=== PATIENT | female | born 1965 | race Caucasian/White ===

== ENCOUNTER 2016-09-25 20:19 | Emergency (ER) ==
[2016-09-25 20:29] VITALS: BP 128/69
[2016-09-25] MEDS ORDERED: STADOL IM ONE (20:55)
[2016-09-25] MEDS ORDERED: PHENERGAN IM ONE (20:56)
--- NOTE | 2016-09-25 20:56 | PROVIDER DOCUMENTATION ---
HPI-Headache - General Chief Complaint: Headache Stated Complaint: HEADACHE Time Seen by Provider: 09/25/16 20:23 Source: patient, family Allergies/Adverse Reactions: Patient Allergies Allergy/AdvReac Type Severity Reaction Status Date / Time dihydroergotamine Allergy Severe Unknown Verified 01/07/16 17:57 diphenhydramine HCl * Allergy Severe muscle Verified 01/07/16 17:57 [From Benadryl] spasms ketorolac tromethamine * Allergy Severe Unknown Verified 01/07/16 17:57 [From Toradol] sumatriptan [From Imitrex] Allergy Severe Unknown Verified 01/07/16 17:57 sumatriptan succinate * Allergy Severe Unknown Verified 01/07/16 17:57 [From Imitrex] acetaminophen Allergy ABDOMINAL Verified 01/07/16 17:57 [From Darvocet-N] PAIN dihydroergotamine mesylate * Allergy HEADACHE Verified 01/07/16 17:57 [From D.H.E.45] hydroxyzine HCl * Allergy Unknown Verified 01/07/16 17:57 [From Vistaril] hydroxyzine pamoate * Allergy Unknown Verified 01/07/16 17:57 [From Vistaril] pregabalin [From Lyrica] Allergy Unknown Verified 09/01/16 13:05 propoxyphene napsylate * Allergy ABDOMINAL Verified 01/07/16 17:57 [From Darvocet-N] PAIN rizatriptan benzoate * Allergy Unknown Verified 01/07/16 17:57 [From Maxalt] codeine AdvReac ITCHING Verified 01/07/16 17:57 diclofenac potassium * AdvReac ABDOMINAL Verified 01/07/16 17:57 [From Cambia] PAIN Home Medications: Alendronate Sodium 35 mg PO DIRECTED 11/01/14 Quetiapine [Seroquel] 300 mg PO QHS 11/01/14 Topiramate [Topamax] 300 mg PO BID 04/12/15 Estradiol 0.5 mg PO DAILY 05/20/15 Omeprazole [Prilosec] 40 mg PO HS 05/20/15 Fluoxetine [Prozac] 60 mg PO DAILY 01/07/16 - History of Present Illness-Headache Nature of Presenting Problem: 51 year old WF with a long, extensive history of migraine MARK's presents with one of her regular migraine MARK's. pt reports the pain is dull, constant, behind bilateral eyes, radiating to the posterior head. pt reports this is her normal presentations, denies new signs or symptoms, numbness, tingling,weakness, speech difficulties, visual changes. Headache Location: reports: frontal Quality of Pain: reports: aching Severity: reports: mild Onset/Duration: reports: 3 days ago Timing: reports: still present, constant, getting worse Headache Context: reports: nothing. denies: head injury, meningitis exposure Headache History: reports: frequent headaches, chronic headaches, history of migraines. denies: occasional headaches, head trauma < 24 hrs ago, head trauma > 24 hrs ago Any recent trauma/injury?: reports: none Headache severity at the maximum: moderate Preceding Symptoms: reports: visual disturbances. denies: scotoma, aura(s), typical of previous aura(s) Headache Exacerbated by:: reports: light, noise, movement, position Modifying Factors: improves with: analgesics (stadol/nubain) Associated Symptoms: denies: paresthesia, seizures, slurred speech, tingling in legs/feet, trouble walking, vomiting, vision changes, weakness Similar Symptoms Previously?: Yes Recently seen or treated by another doctor?: No Review of Systems - Adult - REVIEW OF SYSTEMS - ADULT Constitutional: reports: no symptoms reported. denies: chills, fever, fatique Eyes: reports: see HPI, other (photophobia). denies: discharge, dry eyes, decreased vision, blurred vision, double vision, eye pain, redness Ears, Nose, Mouth & Throat: reports: no symptoms reported. denies: ear discharge, ear pain, nose pain, loose teeth, throat pain, throat swelling Cardiovascular: reports: no symptoms reported. denies: chest pain, palpitations , syncope Respiratory: reports: no symptoms reported. denies: chronic cough, cough, shortness of breath, wheezing Gastrointestinal: reports: no symptoms reported. denies: abdominal pain, diarrhea, nausea, vomiting Genitourinary: reports: no symptoms reported. denies: dysuria, hematuria, urgency Musculoskeletal: reports: no symptoms reported. denies: bone pain, joint pain, joint swelling, neck pain Integumentary: reports: no symptoms reported. denies: hives, rash, skin sores/ ulcer Neurological: reports: see HPI, headache/migraines. denies: ataxia, dizziness/ vertigo, loss of balance, numbness, paresthesia, seizure, slurred speech, syncope, tremors Psychiatric: reports: no symptoms reported Endocrine: reports: no symptoms reported Hematologic/Lymphatic: reports: no symptoms reported Allergic/Immunologic: reports: no symptoms reported. denies: frequent infections All Other Systems: Reviewed and Negative Past History - Adult - PAST MEDICAL HISTORY-ADULT Review of Records: reports: Old Records Reviewed, Nursing Assessment Review, Medications Reviewed, Social history reviewed & non-contributory. Major Childhood Illnesses: reports: denies history Cardiovascular: reports: denies history Respiratory: reports: asthma Gastrointestinal: reports: denies history Obstetrical/Gynecological: reports: denies history Genitourinary: reports: incontinence Musculoskeletal: reports: fibromyalgia Neurological: reports: headaches/migraines Psychiatric: reports: bipolar Endocrine/Immune: reports: denies history Other Conditions: reports: denies history - PRIOR SURGERIES/PROCEDURES Surgical/Procedure History: reports: hysterectomy, tonsillectomy, other (carpal tunnel) - IMMUNIZATION STATUS Childhood Immunizations: See Nurse Assessment Flu Vaccine: See Nurse Assessment - FAMILY HISTORY Family History: reviewed, not pertinent - SOCIAL HISTORY Smoking: cigarettes, greater than 1 pack/day Provider spent 3-5 mins advising pt. on dangers of tobacco.: Discussed manners to quit use, and f/u contacts for add'l counseling. Substance Use: none/never Alcohol Use Frequency: never Physical Exam- Neurological - Physical Exam-Neuro Initial Vital Signs Reviewed: Yes General Appearance: appears well, alert, no apparent distress. negative: lethargic, slow to respond, obtunded, combative Eye Exam: bilateral eye: normal inspection, PERRL, EOMI HENMT: normocephalic/atraumatic, moist mucous membranes, normal ENT inspection Head Injury: no evidence of injury Neck: non-tender, full range of motion, supple, normal inspection. negative: C- spine tenderness, limited range of motion, tender lateral, tender midline Respiratory: chest non-tender, lungs clear, normal breath sounds, no pleuratic chest pain, no respiratory distress, no accessory muscle use Cardiovascular: normal peripheral pulses, regular rate, rhythm, no edema, no gallop, no JVD, no murmur Abdominal Exam: normal bowel sounds, non tender, soft, no organomegaly, no pulsatile mass Lymphatic: no adenopathy Peripheral Pulses: radial (R): 3+, radial (L): 3+ Extremity: normal range of motion, non-tender, normal gait, normal inspection, no pedal edema, no calf tenderness, normal capillary refill, 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 negative: abnormal eye position , abnormal gag reflex, abnormal pupil position, abnormal speech, facial asymmetry, facial droop, facial paresthesias, facial weakness, gaze palsy, tongue deviation to R, tongue deviation to L Coordination/Gait: normal finger to nose, normal gait, negative Romberg's sign. negative: abnormal gait Motor/Sensory: no motor deficit, no sensory deficit, no pronator drift, negative Babinski's sign. negative: pronator drift (R), pronator drift (L), weak motor strength RUE, weak motor strength LUE, weak motor strength RLE, weak motor strength LLE Neurologic: band head saw operator II-XII nml as tested, grossly normal, no motor/sensory deficits , negative romberg's sign. negative: abnormal cerebellar tests, abnormal band head saw operator II -XII, abnormal gait, aphasia, EOM palsy, facial droop, focal weakness, motor weakness, sensory deficit, positive romberg's sign Integumentary: normal color, normal turgor, warm/dry Psych/Mental Status: AL, normal mood/affect, normal thought content, normal thought process, oriented x 3 - Glascow Coma Scale Best Eye Response: (4) open spontaneously Best Verbal Response: (5) oriented Best Motor Response: (6) obeys commands Total Glascow Score: 15 Progress - PLAN OF CARE/RESULTS Progress/Plan/Lab Results: Orders Category Date Time Status Butorphanol [Stadol] Med 09/25/16 20:55 Discontinued 1 mg IM NOW ONE Promethazine [Phenergan] Med 09/25/16 20:56 Discontinued 25 mg IM NOW ONE Vital Signs - 24 hr 09/25/16 20:25 Temperature 98.5 F Pulse Rate 89 Respiratory 18 Rate Blood Pressure 128/69 O2 Sat by Pulse 100 Oximetry Departure - Departure Time of Disposition Order: 20:54 DIAGNOSIS: Headache Qualifiers: Headache type: unspecified Headache chronicity pattern: chronic headache Intractability: not intractable Qualified Code(s): R51 - Headache Migraines Qualifiers: Migraine type: other Status migrainosus presence: without status migrainosus Intractability: not intractable Qualified Code(s): G43.809 - Other migraine, not intractable, without status migrainosus Disposition: HOME 01 Certified Medical Emergency: Emergent Condition: Stable Additional Instructions: Follow up with neurology as scheduled on the 07 of October. ED Follow Up Instructions: You have been treated by a care provider in the Emergency Department. These instructions are being provided to you so you can have an understanding of how to care for yourself upon discharge. Upon discharge from the Emergency Department, you are responsible for making arrangements for follow-up care by a physician of your choice. Take all prescribed medications as directed. Return to the Emergency Department immediately for any new or worsening symptoms. You may call the Physician Referral phone number at [phone] to obtain a list of Physicians who are taking new patients. Prescriptions: Butalb/APAP/Caffeine [Fioricet] 1 each PO Q4H PRN PRN #7 capsule PRN Reason: Migraine Headache Referrals: Edgar Mcgill MD [STAFF PHYSICIAN] - Forms: Return to School/Parent Work Instructions: Acetaminophen; Butalbital; Caffeine tablets or capsules, Migraine Headache, [id number] Attestation - Physician/ Mid-level Attestation Patient care was provided by Mid-level provider (MACHINE SHOP HELPER/PA):: Yes Mid-level provider:: Micha Solis Mid-level documentation review:: The Mid-level provider documentation, treatment plan and medical decision making was reviewed by the physician who agrees with all treatment and medical decision making by the P.
== END 2016-09-25 22:06 | disposition home or self-care (01) ==
LOC: P.ED 20:19
DX: G43.809 Other migraine, not intractable, without status migrainosus (principal); R51 Headache; H53.149 Visual discomfort, unspecified; G89.29 Other chronic pain; M79.7 Fibromyalgia; F31.9 Bipolar disorder, unspecified; F17.210 Nicotine dependence, cigarettes, uncomplicated; Z79.899 Other long term (current) drug therapy; Z71.6 Tobacco abuse counseling
CPT/HCPCS: 96372; J0595; J2550

== ENCOUNTER 2016-11-27 17:05 | Emergency (ER) ==
[2016-11-27 17:18] VITALS: BP 122/78
== END 2016-11-27 18:56 | disposition left against medical advice (07) ==
LOC: P.ED 17:05
DX: R51 Headache (principal)

== ENCOUNTER 2016-11-29 14:58 | Emergency (ER) ==
[2016-11-29 15:05] VITALS: BP 135/89
[2016-11-29] MEDS ORDERED: PHENERGAN IM ONE (15:20)
[2016-11-29] MEDS ORDERED: NUBAIN IM ONE (15:20)
--- NOTE | 2016-11-29 15:26 | PROVIDER DOCUMENTATION ---
HPI-General Adult - General Chief Complaint: Headache Stated Complaint: HEADACHE Time Seen by Provider: 11/29/16 15:05 Source: patient Allergies/Adverse Reactions: Patient Allergies Allergy/AdvReac Type Severity Reaction Status Date / Time dihydroergotamine Allergy Severe Unknown Verified 11/27/16 17:19 diphenhydramine HCl * Allergy Severe muscle Verified 11/27/16 17:19 [From Benadryl] spasms ketorolac tromethamine * Allergy Severe Unknown Verified 11/27/16 17:19 [From Toradol] sumatriptan [From Imitrex] Allergy Severe Unknown Verified 11/27/16 17:19 sumatriptan succinate * Allergy Severe Unknown Verified 11/27/16 17:19 [From Imitrex] acetaminophen Allergy ABDOMINAL Verified 11/27/16 17:19 [From Darvocet-N] PAIN dihydroergotamine mesylate * Allergy HEADACHE Verified 11/27/16 17:19 [From D.H.E.45] hydroxyzine HCl * Allergy Unknown Verified 11/27/16 17:19 [From Vistaril] hydroxyzine pamoate * Allergy Unknown Verified 11/27/16 17:19 [From Vistaril] pregabalin [From Lyrica] Allergy Unknown Verified 11/27/16 17:19 propoxyphene napsylate * Allergy ABDOMINAL Verified 11/27/16 17:19 [From Darvocet-N] PAIN rizatriptan benzoate * Allergy Unknown Verified 11/27/16 17:19 [From Maxalt] codeine AdvReac ITCHING Verified 11/27/16 17:19 diclofenac potassium * AdvReac ABDOMINAL Verified 11/27/16 17:19 [From Cambia] PAIN Home Medications: Home Medication List Medication Instructions Recorded Confirmed Last Taken Type Alendronate Sodium 35 mg PO DIRECTED 11/01/14 09/25/16 08/02/15 History Quetiapine [Seroquel] 300 mg PO QHS 11/01/14 09/25/16 1 Day Ago History Promethazine [Phenergan] 1 tab PO Q6H PRN PRN #18 tablet 11/09/14 09/25/1608/02 Rx Topiramate [Topamax] 300 mg PO BID 04/12/15 09/25/16 08/02/15 History Estradiol 0.5 mg PO DAILY 05/20/15 09/25/16 08/02/15 History Omeprazole [Prilosec] 40 mg PO HS 05/20/15 09/25/16 08/02/15 History Fluoxetine [Prozac] 60 mg PO DAILY 01/07/16 09/25/16 Unknown History - History of Present Illness -Gen Adult Nature of Presenting Problems: Pt. is 51 yof that presents with c/o migraine MARK for two days. Pt. reports the lights hurt her eyes and states that she is nauseated. Pt. reports she came in yesterday but couldn't wait in the lobby with all of the kids screaming. Pt. denies any other symptoms but did state her Neurologist told her to come to the ED and get something to knock out her MARK when her home medications were not working. Location of Pain/Injury: reports: head. denies: face, mouth, neck, chest, upper extremity, hand(s), abdomen, back, pelvis, genitalia, lower extremity, feet, upper body, lower body, generalized Pain Radiation: reports: no radiation Quality of Pain: reports: aching. denies: burning, cramping, dull, fullness, indigestion, pressure, sharp, stabbing, tearing, throbbing, tightness Severity: reports: moderate. denies: mild, severe Onset/Duration: reports: gradual, 2 days ago Timing: reports: still present. denies: improving, gone now, resolved prior to arrival, intermittent, constant, changing over time, getting worse Context/Activities at Onset: reports: none. denies: recent emotional stress, recent physical stress, recent trauma history, possible bad food, cold exposure , out of country travel Modifying Factors: improves with: nothing Associated Symptoms: reports: headaches, nausea. denies: anxiety, arm pain, back/neck pain, chest pain, constipation, cough, diaphoresis, diarrhea, dizziness, EENT symptoms, fatigue, fever/chills, genitourinary problems, heartburn, joint pain, loss of appetite, malaise, muscle aches, sinus congestion /drainage, rash, seizure, shortness of breath, sensory/motor loss, pain with inspiration, swelling/mass in abdomen, syncope, vomiting, weakness, trouble walking Similar Symptoms Previously?: Yes Recently seen or treated by another doctor?: No Review of Systems - Adult - REVIEW OF SYSTEMS - ADULT Constitutional: reports: see HPI. denies: chills, fever, fatique Eyes: reports: see HPI. denies: discharge, blurred vision, double vision Ears, Nose, Mouth & Throat: reports: see HPI. denies: ear discharge, ear pain, hearing loss, sinus problem, nose pain, loose teeth, mouth/dental pain, throat pain, throat swelling Cardiovascular: reports: see HPI. denies: chest pain, irregular heart rate, orthopnea, syncope Respiratory: reports: see HPI. denies: chronic cough, cough, dyspnea on exertion, pleurisy, shortness of breath, wheezing Gastrointestinal: reports: see HPI, nausea. denies: abdominal pain, hematemesis , diarrhea, vomiting Genitourinary: reports: see HPI. denies: dysuria, discharge, flank pain, hematuria, hesitency, urgency Musculoskeletal: reports: see HPI. denies: bone pain, back pain, joint pain, muscle aches, neck pain Integumentary: reports: see HPI. denies: hives, itching, rash, skin thickening Neurological: reports: see HPI, headache/migraines. denies: ataxia, numbness, paresthesia, seizure, tremors Psychiatric: reports: see HPI. denies: anxiety, depression, emotional problems , insomnia, panic attacks, suicidal thoughts Past History - Adult - PAST MEDICAL HISTORY-ADULT Review of Records: reports: Old Records Reviewed, Nursing Assessment Review, Medications Reviewed, Social history reviewed & non-contributory. Major Childhood Illnesses: reports: denies history Cardiovascular: reports: denies history Respiratory: reports: asthma Gastrointestinal: reports: denies history Obstetrical/Gynecological: reports: denies history Genitourinary: reports: incontinence Musculoskeletal: reports: fibromyalgia Neurological: reports: headaches/migraines Psychiatric: reports: bipolar Endocrine/Immune: reports: denies history Other Conditions: reports: denies history - PRIOR SURGERIES/PROCEDURES Surgical/Procedure History: reports: hysterectomy, tonsillectomy, other (carpal tunnel) - IMMUNIZATION STATUS Childhood Immunizations: See Nurse Assessment Flu Vaccine: See Nurse Assessment - FAMILY HISTORY Family History: reviewed, not pertinent - SOCIAL HISTORY Smoking: cigarettes, greater than 1 pack/day Provider spent 3-5 mins advising pt. on dangers of tobacco.: Discussed the need to stop smoking. Physical Exam-General - PHYSICAL EXAM-ADULT Initial Vital Signs Reviewed: Yes - CONSTITUTIONAL General Appearance: alert, mild distress, thin. negative: obese, anxious, lethargic, slow to respond, obtunded, combative - EYES Eyes: PERRL/EOMI, pink conjunctivae, photophobia. negative: conjuctival exudate , scleral icterus, subconjunctival hemorrhage - HEAD, EARS, NOSE, MOUTH & THROAT HENMT: normocephalic/atraumatic, moist mucous membranes. negative: angioedema, frontal tenderness, maxillary tenderness - NECK Neck: non-tender, full range of motion, supple, normal inspection. negative: lymphadenopathy, trachial deviation, thyromegaly - RESPIRATORY Respiratory: lungs clear, normal breath sounds. negative: crackles, rales, rhonchi, stridor, wheezing - CARDIOVASCULAR Cardiovascular: normal peripheral pulses, regular rate, rhythm, no edema, no JVD , no murmur. negative: extra beats, friction rub, irregularly irregular - CHEST (BREASTS) Chest/Breast: deferred - GASTROINTESTINAL (ABDOMEN) Abdominal Exam: normal bowel sounds, non tender, soft. negative: distended, guarding, rigid, rebound, tenderness, hernia, mass - GENITOURINARY Female Genitalia/Pelvic Exam: deferred Rectal Exam: deferred Hemoccult Exam: deferred - LYMPHATIC Lymphatic: no adenopathy. negative: axilla node tender, cervical node tenderness - MUSCULOSKELETAL Back Exam: normal inspection, no CVA tenderness, no vertebral tenderness. negative: ecchymosis, swelling, vertebral tenderness Extremity: normal range of motion, non-tender, normal gait, normal inspection. negative: deformity, erythema, inflammation, swelling, tenderness Peripheral Pulses: radial (R): 2+, radial (L): 2+ - SKIN Integumentary: normal color, normal turgor, warm/dry. negative: cyanosis, diaphoresis, ecchymosis, erythema, jaundice, mottled, pallor, petechiae, purpura , rash, swelling, tenderness - NEUROLOGIC Neurologic: grossly normal, no motor/sensory deficits. negative: aphasia, facial droop, focal weakness, motor weakness, sensory deficit - PSYCHIATRIC Psych/Mental Status: normal mood/affect, normal thought content, normal thought process, oriented x 3. negative: anxious, tearful Progress - PLAN OF CARE/RESULTS Progress/Plan/Lab Results: Discussed plan of care with patient. Patient agrees with plan and verbalizes understanding. Vital Signs Temp Pulse Resp BP Pulse Ox 11/29/16 15:02 98 F 87 18 135/89 97 dihydroergotamine Allergy (Severe, Verified 11/27/16 17:19) Unknown diphenhydramine HCl * [From Benadryl] Allergy (Severe, Verified 11/27/16 17:19) muscle spasms ketorolac tromethamine * [From Toradol] Allergy (Severe, Verified 11/27/16 17:19 ) Unknown sumatriptan [From Imitrex] Allergy (Severe, Verified 11/27/16 17:19) Unknown sumatriptan succinate * [From Imitrex] Allergy (Severe, Verified 11/27/16 17:19) Unknown acetaminophen [From Darvocet-N] Allergy (Verified 11/27/16 17:19) ABDOMINAL PAIN dihydroergotamine mesylate * [From D.H.E.45] Allergy (Verified 11/27/16 17:19) HEADACHE hydroxyzine HCl * [From Vistaril] Allergy (Verified 11/27/16 17:19) Unknown hydroxyzine pamoate * [From Vistaril] Allergy (Verified 11/27/16 17:19) Unknown pregabalin [From Lyrica] Allergy (Verified 11/27/16 17:19) Unknown propoxyphene napsylate * [From Darvocet-N] Allergy (Verified 11/27/16 17:19) ABDOMINAL PAIN rizatriptan benzoate * [From Maxalt] Allergy (Verified 11/27/16 17:19) Unknown codeine Adverse Reaction (Verified 11/27/16 17:19) ITCHING diclofenac potassium * [From Cambia] Adverse Reaction (Verified 11/27/16 17:19) ABDOMINAL PAIN Alendronate Sodium 35 mg PO DIRECTED 11/01/14 Quetiapine [Seroquel] 300 mg PO QHS 11/01/14 Promethazine [Phenergan] 1 tab PO Q6H PRN PRN #18 tablet 11/09/14 Topiramate [Topamax] 300 mg PO BID 04/12/15 Estradiol 0.5 mg PO DAILY 05/20/15 Omeprazole [Prilosec] 40 mg PO HS 05/20/15 Fluoxetine [Prozac] 60 mg PO DAILY 01/07/16 Orders Category Date Time Status Nalbuphine [Nubain] Med 11/29/16 15:20 Discontinued 10 mg IM NOW ONE Promethazine [Phenergan] Med 11/29/16 15:20 Discontinued 25 mg IM NOW ONE Departure - Departure Time of Disposition Order: 15:25 DIAGNOSIS: Migraines Qualifiers: Migraine type: unspecified Status migrainosus presence: without status migrainosus Intractability: not intractable Qualified Code(s): G43.909 - Migraine, unspecified, not intractable, without status migrainosus Disposition: HOME 01 Certified Medical Emergency: Emergent Condition: Stable Additional Instructions: Follow up with primary care physician Follow up with Neurologist Rest in a cool dark room Return to ED for any concerns or worsening of symptoms ED Follow Up Instructions: You have been treated by a care provider in the Emergency Department. These instructions are being provided to you so you can have an understanding of how to care for yourself upon discharge. Upon discharge from the Emergency Department, you are responsible for making arrangements for follow-up care by a physician of your choice. Take all prescribed medications as directed. Return to the Emergency Department immediately for any new or worsening symptoms. You may call the Physician Referral phone number at [phone] to obtain a list of Physicians who are taking new patients. Attestation - Physician/ MELVA Attestation Patient care was provided by Advanced Practice Provider:: Yes Advanced Practice Provider:: Zhou Burger Advanced Practice Provider documentation review:: The Mid-level provider documentation, treatment plan and medical decision making was reviewed by the physician who agrees with all treatment and medical decision making by the MLP.
== END 2016-11-29 15:36 | disposition home or self-care (01) ==
LOC: P.ED 14:58
DX: G43.909 Migraine, unspecified, not intractable, without status migrainosus (principal); R51 Headache; R11.0 Nausea; H53.149 Visual discomfort, unspecified; M79.7 Fibromyalgia; F31.9 Bipolar disorder, unspecified; F17.210 Nicotine dependence, cigarettes, uncomplicated; Z79.899 Other long term (current) drug therapy; Z71.6 Tobacco abuse counseling
CPT/HCPCS: 96372; J2300; J2550

== ENCOUNTER 2016-12-05 23:23 | Emergency (ER) ==
[2016-12-05 23:41] VITALS: BP 103/69
--- NOTE | 2016-12-06 00:49 | PROVIDER DOCUMENTATION ---
HPI-Headache - General Source: patient - History of Present Illness-Headache Quality of Pain: reports: aching Severity: reports: mild Onset/Duration: reports: this morning Timing: reports: still present Headache History: reports: frequent headaches, history of migraines Any recent trauma/injury?: reports: none Headache severity at the maximum: mild Headache Exacerbated by:: reports: light Modifying Factors: improves with: nothing Associated Symptoms: reports: headache, nausea Similar Symptoms Previously?: Yes Recently seen or treated by another doctor?: Yes <Rosy Anderson - Last Filed: 12/06/16 00:50> <Ashkan Stallworth - Last Filed: 12/06/16 00:56> - General Chief Complaint: Headache Stated Complaint: HEADACHE Time Seen by Provider: 12/06/16 00:18 Allergies/Adverse Reactions: Patient Allergies Allergy/AdvReac Type Severity Reaction Status Date / Time dihydroergotamine Allergy Severe Unknown Verified 12/05/16 23:42 diphenhydramine HCl * Allergy Severe muscle Verified 12/05/16 23:42 [From Benadryl] spasms ketorolac tromethamine * Allergy Severe Unknown Verified 12/05/16 23:42 [From Toradol] sumatriptan [From Imitrex] Allergy Severe Unknown Verified 12/05/16 23:42 sumatriptan succinate * Allergy Severe Unknown Verified 12/05/16 23:42 [From Imitrex] acetaminophen Allergy ABDOMINAL Verified 12/05/16 23:42 [From Darvocet-N] PAIN dihydroergotamine mesylate * Allergy HEADACHE Verified 12/05/16 23:42 [From D.H.E.45] hydroxyzine HCl * Allergy Unknown Verified 12/05/16 23:42 [From Vistaril] hydroxyzine pamoate * Allergy Unknown Verified 12/05/16 23:42 [From Vistaril] pregabalin [From Lyrica] Allergy Unknown Verified 12/05/16 23:42 propoxyphene napsylate * Allergy ABDOMINAL Verified 12/05/16 23:42 [From Darvocet-N] PAIN rizatriptan benzoate * Allergy Unknown Verified 12/05/16 23:42 [From Maxalt] codeine AdvReac ITCHING Verified 12/05/16 23:42 diclofenac potassium * AdvReac ABDOMINAL Verified 12/05/16 23:42 [From [facility]] PAIN Home Medications: Home Medication List Medication Instructions Recorded Confirmed Last Taken Type Alendronate Sodium 35 mg PO DIRECTED 11/01/14 12/05/16 08/02/15 History Quetiapine [Seroquel] 300 mg PO QHS 11/01/14 12/05/16 1 Day Ago History Promethazine [Phenergan] 1 tab PO Q6H PRN PRN #18 tablet 11/09/14 12/05/1608/02 Rx Topiramate [Topamax] 300 mg PO BID 04/12/15 12/05/16 08/02/15 History Estradiol 0.5 mg PO DAILY 05/20/15 12/05/16 08/02/15 History Omeprazole [Prilosec] 40 mg PO HS 05/20/15 12/05/16 08/02/15 History Fluoxetine [Prozac] 60 mg PO DAILY 01/07/16 12/05/16 Unknown History Oxcarbazepine [Trileptal] 300 mg PO BID 12/05/16 12/05/16 Unknown History Review of Systems - Adult - REVIEW OF SYSTEMS - ADULT Constitutional: denies: chills, fever Eyes: reports: no symptoms reported Ears, Nose, Mouth & Throat: reports: no symptoms reported Cardiovascular: reports: no symptoms reported Respiratory: reports: no symptoms reported Gastrointestinal: reports: nausea. denies: diarrhea, vomiting Genitourinary: reports: no symptoms reported Musculoskeletal: reports: no symptoms reported Integumentary: reports: no symptoms reported Neurological: reports: headache/migraines. denies: dizziness/vertigo Psychiatric: reports: no symptoms reported Endocrine: reports: no symptoms reported Hematologic/Lymphatic: reports: no symptoms reported Allergic/Immunologic: reports: no symptoms reported All Other Systems: Reviewed and Negative <Rosy Anderson - Last Filed: 12/06/16 00:50> Past History - Adult - PAST MEDICAL HISTORY-ADULT Review of Records: reports: Nursing Assessment Review, Medications Reviewed Major Childhood Illnesses: reports: denies history Cardiovascular: reports: denies history Respiratory: reports: asthma Gastrointestinal: reports: denies history Obstetrical/Gynecological: reports: denies history Genitourinary: reports: incontinence Musculoskeletal: reports: fibromyalgia Neurological: reports: headaches/migraines Psychiatric: reports: bipolar Endocrine/Immune: reports: denies history Other Conditions: reports: denies history - PRIOR SURGERIES/PROCEDURES Surgical/Procedure History: reports: hysterectomy, tonsillectomy, other (carpal tunnel) - IMMUNIZATION STATUS Childhood Immunizations: See Nurse Assessment Flu Vaccine: See Nurse Assessment - FAMILY HISTORY Family History: reviewed, not pertinent - SOCIAL HISTORY Smoking: cigarettes, less than 1 pack/day Provider spent 3-5 mins advising pt. on dangers of tobacco.: Discussed manners to quit use, and f/u contacts for add'l counseling. Substance Use: none/never Alcohol Use Frequency: never <Rosy Anderson - Last Filed: 12/06/16 00:50> Physical Exam- Neurological - Physical Exam-Neuro Initial Vital Signs Reviewed: Yes General Appearance: appears well, alert, no apparent distress Eye Exam: bilateral eye: normal inspection, PERRL, EOMI Head Injury: no evidence of injury Respiratory: chest non-tender, lungs clear, normal breath sounds Cardiovascular: normal peripheral pulses, regular rate, rhythm, no edema front office help Exam: normal hearing, normal speech, PERRL Neurologic: front office help II-XII nml as tested, no motor/sensory deficits Integumentary: normal color, normal turgor, warm/dry Psych/Mental Status: normal mood/affect, normal thought content, normal thought process, oriented x 3 <Rosy Anderson - Last Filed: 12/06/16 00:50> Departure <Rosy Anderson - Last Filed: 12/06/16 00:50> - Departure Time of Disposition Order: 00:54 Certified Medical Emergency: Emergent <Ashkan Stallworth - Last Filed: 12/06/16 00:56> - Departure DIAGNOSIS: Migraines Qualifiers: Migraine type: unspecified Status migrainosus presence: without status migrainosus Intractability: not intractable Qualified Code(s): G43.909 - Migraine, unspecified, not intractable, without status migrainosus Disposition: HOME 01 Condition: Stable Additional Instructions: FOLLOW UP WITH YOUR NEUROLOGIST. ED Follow Up Instructions: You have been treated by a care provider in the Emergency Department. These instructions are being provided to you so you can have an understanding of how to care for yourself upon discharge. Upon discharge from the Emergency Department, you are responsible for making arrangements for follow-up care by a physician of your choice. Take all prescribed medications as directed. Return to the Emergency Department immediately for any new or worsening symptoms. You may call the Physician Referral phone number at [phone] to obtain a list of Physicians who are taking new patients. Attestation - Scribe Verification/Attestation Scribe:: Rosy Anderson Acting as Scribe for:: Ashkan Stallworth Scribe documention review:: This chart was documented by a scribe and accurately reflects the service the provider performed and the decisions made by the provider. <Rosy Anderson - Last Filed: 12/06/16 00:50> - Physician/ MELVA Attestation Patient care was provided by Advanced Practice Provider:: Yes Advanced Practice Provider:: Ashkan Stallworth Advanced Practice Provider documentation review:: The Mid-level provider documentation, treatment plan and medical decision making was reviewed by the physician who agrees with all treatment and medical decision making by the MLP. <Ashkan Stallworth - Last Filed: 12/06/16 00:56> Physician Attestation
[2016-12-06] MEDS ORDERED: PHENERGAN IM ONE (00:55)
[2016-12-06] MEDS ORDERED: DILAUDID IM ONE (00:55)
== END 2016-12-06 01:08 | disposition home or self-care (01) ==
LOC: P.ED 23:23
DX: G43.909 Migraine, unspecified, not intractable, without status migrainosus (principal); R51 Headache; R11.0 Nausea; M79.7 Fibromyalgia; F31.9 Bipolar disorder, unspecified; Z79.899 Other long term (current) drug therapy
CPT/HCPCS: 96372; J1170; J2550

== ENCOUNTER 2016-12-08 16:57 | Emergency (ER) ==
[2016-12-08 17:03] VITALS: BP 145/83
--- NOTE | 2016-12-08 17:41 | PROVIDER DOCUMENTATION ---
HPI-Headache - General Source: patient - History of Present Illness-Headache Headache Location: reports: global Quality of Pain: reports: aching Severity: reports: moderate Onset/Duration: reports: this morning Timing: reports: still present Headache Context: reports: nothing Headache History: reports: history of migraines Any recent trauma/injury?: reports: none Headache severity at the maximum: moderate Similar Symptoms Previously?: Yes Recently seen or treated by another doctor?: No <Manny Callahan - Last Filed: 12/08/16 17:38> <Danita Mortensen - Last Filed: 12/08/16 17:48> - General Chief Complaint: Headache Stated Complaint: HEADACHE Time Seen by Provider: 12/08/16 17:19 Allergies/Adverse Reactions: Patient Allergies Allergy/AdvReac Type Severity Reaction Status Date / Time dihydroergotamine Allergy Severe Unknown Verified 12/05/16 23:42 diphenhydramine HCl * Allergy Severe muscle Verified 12/05/16 23:42 [From Benadryl] spasms ketorolac tromethamine * Allergy Severe Unknown Verified 12/05/16 23:42 [From Toradol] sumatriptan [From Imitrex] Allergy Severe Unknown Verified 12/05/16 23:42 sumatriptan succinate * Allergy Severe Unknown Verified 12/05/16 23:42 [From Imitrex] acetaminophen Allergy ABDOMINAL Verified 12/05/16 23:42 [From Darvocet-N] PAIN dihydroergotamine mesylate * Allergy HEADACHE Verified 12/05/16 23:42 [From D.H.E.45] hydroxyzine HCl * Allergy Unknown Verified 12/05/16 23:42 [From Vistaril] hydroxyzine pamoate * Allergy Unknown Verified 12/05/16 23:42 [From Vistaril] pregabalin [From Lyrica] Allergy Unknown Verified 12/05/16 23:42 propoxyphene napsylate * Allergy ABDOMINAL Verified 12/05/16 23:42 [From Darvocet-N] PAIN rizatriptan benzoate * Allergy Unknown Verified 12/05/16 23:42 [From Maxalt] codeine AdvReac ITCHING Verified 12/05/16 23:42 diclofenac potassium * AdvReac ABDOMINAL Verified 12/05/16 23:42 [From [facility]] PAIN Home Medications: Home Medication List Medication Instructions Recorded Confirmed Last Taken Type Alendronate Sodium 35 mg PO DIRECTED 11/01/14 12/05/16 08/02/15 History Quetiapine [Seroquel] 300 mg PO QHS 11/01/14 12/05/16 1 Day Ago History Promethazine [Phenergan] 1 tab PO Q6H PRN PRN #18 tablet 11/09/14 12/05/1608/02 Rx Topiramate [Topamax] 300 mg PO BID 04/12/15 12/05/16 08/02/15 History Estradiol 0.5 mg PO DAILY 05/20/15 12/05/16 08/02/15 History Omeprazole [Prilosec] 40 mg PO HS 05/20/15 12/05/16 08/02/15 History Fluoxetine [Prozac] 60 mg PO DAILY 01/07/16 12/05/16 Unknown History Oxcarbazepine [Trileptal] 300 mg PO BID 12/05/16 12/05/16 Unknown History - History of Present Illness-Headache Nature of Presenting Problem: Pt has hx of migraines reports otc medications not working reports globalized like normal headache started this am with nausea and vomiting. Nothing makes it better or worse. (Manny Callahan) Review of Systems - Adult - REVIEW OF SYSTEMS - ADULT Constitutional: denies: chills, fever, fatique Eyes: reports: no symptoms reported Ears, Nose, Mouth & Throat: reports: no symptoms reported Cardiovascular: denies: chest pain, irregular heart rate, orthopnea, syncope Respiratory: reports: no symptoms reported Gastrointestinal: reports: nausea, vomiting. denies: abdominal pain, diarrhea Genitourinary: reports: no symptoms reported Musculoskeletal: reports: no symptoms reported Integumentary: reports: no symptoms reported Neurological: reports: headache/migraines. denies: loss of balance, numbness, paresthesia Psychiatric: reports: no symptoms reported Endocrine: reports: no symptoms reported Hematologic/Lymphatic: reports: no symptoms reported Allergic/Immunologic: reports: no symptoms reported All Other Systems: Reviewed and Negative <Manny Callahan - Last Filed: 12/08/16 17:38> Past History - Adult - PAST MEDICAL HISTORY-ADULT Review of Records: reports: Nursing Assessment Review Major Childhood Illnesses: reports: denies history Cardiovascular: reports: denies history Respiratory: reports: asthma Gastrointestinal: reports: denies history Obstetrical/Gynecological: reports: denies history Genitourinary: reports: incontinence Musculoskeletal: reports: fibromyalgia Neurological: reports: headaches/migraines Psychiatric: reports: bipolar Endocrine/Immune: reports: denies history Other Conditions: reports: denies history - PRIOR SURGERIES/PROCEDURES Surgical/Procedure History: reports: hysterectomy, tonsillectomy, other (carpal tunnel) - IMMUNIZATION STATUS Childhood Immunizations: See Nurse Assessment Flu Vaccine: See Nurse Assessment - FAMILY HISTORY Family History: reviewed, not pertinent - SOCIAL HISTORY Smoking: cigarettes, less than 1 pack/day Provider spent 3-5 mins advising pt. on dangers of tobacco.: Discussed manners to quit use, and f/u contacts for add'l counseling. 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 capillary refill orthopedic brace maker Exam: normal hearing, normal speech, PERRL Coordination/Gait: normal finger to nose, normal gait Motor/Sensory: no motor deficit, no sensory deficit Neurologic: grossly normal, no motor/sensory deficits Integumentary: normal color, normal turgor, warm/dry Psych/Mental Status: normal mood/affect, oriented x 3 - Glascow Coma Scale Best Eye Response: (4) open spontaneously Best Verbal Response: (5) oriented Best Motor Response: (6) obeys commands Total Glascow Score: 15 <Danita Mortensen - Last Filed: 12/08/16 17:48> Progress <Manny Callahan - Last Filed: 12/08/16 17:38> <Danita Mortensen - Last Filed: 12/08/16 17:48> - PLAN OF CARE/RESULTS Progress/Plan/Lab Results: Vital Signs - 24 hr 12/08/16 17:01 Temperature 98.4 F Pulse Rate 90 Respiratory 20 Rate Blood Pressure 145/83 O2 Sat by Pulse 100 Oximetry (Manny Callahan) Discussed care, diagnosis and need for follow-up, patient verbalized understanding Orders Category Date Time Status Promethazine [Phenergan] Med 12/08/16 17:46 Discontinued 25 mg IM NOW ONE Last Vital Signs Temp 98.4 F 12/08/16 17:01 Pulse 90 12/08/16 17:01 Resp 20 12/08/16 17:01 BP 145/83 12/08/16 17:01 Pulse Ox 100 12/08/16 17:01 Allergies dihydroergotamine Allergy (Severe, Verified 12/05/16 23:42) Unknown diphenhydramine HCl * [From Benadryl] Allergy (Severe, Verified 12/05/16 23:42) muscle spasms ketorolac tromethamine * [From Toradol] Allergy (Severe, Verified 12/05/16 23:42 ) Unknown sumatriptan [From Imitrex] Allergy (Severe, Verified 12/05/16 23:42) Unknown sumatriptan succinate * [From Imitrex] Allergy (Severe, Verified 12/05/16 23:42) Unknown acetaminophen [From Darvocet-N] Allergy (Verified 12/05/16 23:42) ABDOMINAL PAIN dihydroergotamine mesylate * [From D.H.E.45] Allergy (Verified 12/05/16 23:42) HEADACHE hydroxyzine HCl * [From Vistaril] Allergy (Verified 12/05/16 23:42) Unknown hydroxyzine pamoate * [From Vistaril] Allergy (Verified 12/05/16 23:42) Unknown pregabalin [From Lyrica] Allergy (Verified 12/05/16 23:42) Unknown propoxyphene napsylate * [From Darvocet-N] Allergy (Verified 12/05/16 23:42) ABDOMINAL PAIN rizatriptan benzoate * [From Maxalt] Allergy (Verified 12/05/16 23:42) Unknown codeine Adverse Reaction (Verified 12/05/16 23:42) ITCHING diclofenac potassium * [From Cambia] Adverse Reaction (Verified 12/05/16 23:42) ABDOMINAL PAIN Vital Signs - 24 hr 12/08/16 17:01 Temperature 98.4 F Pulse Rate 90 Respiratory 20 Rate Blood Pressure 145/83 O2 Sat by Pulse 100 Oximetry Discussed care, diagnsois and (Danita Mortensen) Departure <Manny Callahan - Last Filed: 12/08/16 17:38> - Departure Time of Disposition Order: 17:44 Certified Medical Emergency: Emergent <Danita Mortensen - Last Filed: 12/08/16 17:48> - Departure DIAGNOSIS: Migraine Qualifiers: Migraine type: unspecified Status migrainosus presence: without status migrainosus Intractability: not intractable Qualified Code(s): G43.909 - Migraine, unspecified, not intractable, without status migrainosus Disposition: HOME 01 Condition: Stable Additional Instructions: ED Follow Up Instructions: You have been treated by a care provider in the Emergency Department. These instructions are being provided to you so you can have an understanding of how to care for yourself upon discharge. Upon discharge from the Emergency Department, you are responsible for making arrangements for follow-up care by a physician of your choice. Take all prescribed medications as directed. Return to the Emergency Department immediately for any new or worsening symptoms. You may call the Physician Referral phone number at [phone] to obtain a list of Physicians who are taking new patients. Referrals: Malika Trotter MD [STAFF PHYSICIAN] - None,PCP [Primary Care Provider] - Forms: Return to School/Parent Work Attestation - Scribe Verification/Attestation Scribe:: Manny Callahan Acting as Scribe for:: Danita Mortensen Scribe documention review:: This chart was documented by a scribe and accurately reflects the service the provider performed and the decisions made by the provider. - Physician/ MELVA Attestation Patient care was provided by Advanced Practice Provider:: Yes Advanced Practice Provider:: Danita Mortensen Advanced Practice Provider documentation review:: The Mid-level provider documentation, treatment plan and medical decision making was reviewed by the physician who agrees with all treatment and medical decision making by the MLP. <Manny Callahan - Last Filed: 12/08/16 17:38> - Physician/ MELVA Attestation Patient care was provided by Advanced Practice Provider:: Yes Advanced Practice Provider:: Danita Mortensen Advanced Practice Provider documentation review:: The Mid-level provider documentation, treatment plan and medical decision making was reviewed by the physician who agrees with all treatment and medical decision making by the MLP. <Danita Mortensen - Last Filed: 12/08/16 17:48> Physician Attestation
[2016-12-08] MEDS ORDERED: PHENERGAN IM ONE (17:46)
[2016-12-08] MEDS ORDERED: NUBAIN IM ONE (17:51)
== END 2016-12-08 18:09 | disposition home or self-care (01) ==
LOC: P.ED 16:57
DX: G43.909 Migraine, unspecified, not intractable, without status migrainosus (principal); R51 Headache; R11.2 Nausea with vomiting, unspecified; M79.7 Fibromyalgia; F31.9 Bipolar disorder, unspecified; Z79.899 Other long term (current) drug therapy; F17.210 Nicotine dependence, cigarettes, uncomplicated; Z71.6 Tobacco abuse counseling
CPT/HCPCS: 96372; J2550